=== PATIENT | female | born 1965 | race African-American/Black ===

== ENCOUNTER 2016-09-19 21:19 | Emergency (ER) | payer OTHER ==
[2016-09-19] MEDS ORDERED: Ondansetron HCl/PF 4 MG/2 ML Vial ONE (22:09)
[2016-09-19] MEDS ORDERED: Morphine Sulfate 2 MG/ML SYRINGE ONE (22:09)
[2016-09-19] MEDS ORDERED: Sodium Chloride 0.9% 1,000 ML ONE (22:09)
[2016-09-19 22:42] LABS: Base Excess 3.4 mEq/L (0 (+/- 2.5)); pH (venous) 7.49 (7.34-7.37)
[2016-09-19 22:50] LABS: #Basophils 0.2 thou/uL (0.0-0.2); #Eosinphils 0.4 thou/uL (0.0-0.7); #Lymphocytes 2.9 thou/uL (1.20-3.40); #Monocytes 0.6 thou/uL (0.11-0.59); #Neutrophils 6.5 thou/uL (1.40-6.50); %Basophils 1.8 % (0.0-1.0); %Eosinophils 3.5 % (0.0-10.0); %Lymphocytes 27.3 % (21.0-51.0); %Monocytes 5.4 % (0.0-10.0); Hematocrit 36.5 % (36.0-47.0); Mean Platelet Volume 5.5 fL (7.4-10.4); Microcytosis SLIGHT = 6-15 cells (100X) (0-5/hpf); Ovalocytes SLIGHT = 2-5 cells (100X) (0-1/hpf); Red Blood Cell (RBC) Count 4.73 mill/uL (4.20-5.40); White Blood Cell (WBC) Count 10.5 thou/uL (4.8-10.8)
[2016-09-19 22:54] LABS: Bilirubin Negative (Negative); Blood, Urine Moderate (Negative); Glucose, Urine (Dipstick) 500 mg/dL (Negative); Ketone, Urine Trace mg/dL (Negative); Nitrite Negative (Negative); Protein, Urine (Dipstick) Negative (Neg-Trace)
[2016-09-19 22:59] LABS: ALT (SGPT) 19 U/L (0-55); AST (SGOT) 14 U/L (5-34); Alkaline Phosphatase 143 U/L (40-150); Anion Gap 12 mmol/L (10-20); BUN (Urea Nitrogen) 18 mg/dL (7.0-18.7); Bilirubin, Total 0.2 mg/dL (0.2-1.2); Calc. Creatinine Clearance 0 mL/min (70-130); Calcium 8.6 mg/dL (7.8-10.44); Carbon Dioxide 26 mmol/L (22-29); Chloride 99 mmol/L (98-107); Estimated GFR-MDRD Greater than 90; Globulin 3.9 g/dL (2.4-3.5); Lipase 32 U/L (8-78); Protein, Total 7.2 g/dL (6.0-8.3)
[2016-09-19 23:00] LABS: Bacteria/HPF 2+ HPF (None Seen); RBC/HPF GREATER THAN 50-TNTC HPF (0-3); WBC/HPF 21-50 HPF (0-3)
--- NOTE | 2016-09-19 23:08 | CT ---
CT ABDOMEN AND PELVIS WITHOUT CONTRAST: 09/19/16 Multiple axial tomograms were obtained through the abdomen and pelvis without IV enhancement. HISTORY: Right flank pain and abdominal pain. Comparison made to CT of 05/08/16. The 2 cm nodule in the right lung base noted on prior CT is not imaged on the current study due to l ocation of the scan. The entire liver is also not imaged on this exam. The visualized liver and spleen appear unremarkable. The pancreas and adrenal glands are unremarkabl e. Kidneys show no evidence of hydronephrosis. No evidence of urinary tract calculus. The tiny calculus seen in the inferior pole of the left kidney on the prior study is not definitely seen today. Small bowel loops appear normal. Appendix appears normal. Colon unremarkable. Images of the pelvis show u nremarkable uterus and adnexa. No evidence of adenopathy. Nonspecific periaortic lymph nodes are sub centimeter and stable. IMPRESSION: No acute process identified. POS: [facility]
[2016-09-19] MEDS ORDERED: Sodium Chloride 0.9% 100 ML ONE (23:10)
[2016-09-19] MEDS ORDERED: Insulin Regular 300 UNITS/3 ML VIAL ONE (23:10)
[2016-09-19] MEDS ORDERED: cefTRIAXone\\ROCEPHIN 2 GM VIAL ONE (23:10)
[2016-09-19] MEDS ORDERED: HYDROcodone/Acetaminophen 10/325 mg Tablet ONE (23:26)
== END 2016-09-20 00:14 | disposition home or self-care (01) ==
LOC: NAV ERS 21:19
DX: N39.0 Urinary tract infection, site not specified (principal); E11.65 Type 2 diabetes mellitus with hyperglycemia; I10 Essential (primary) hypertension; F31.9 Bipolar disorder, unspecified; F41.9 Anxiety disorder, unspecified; F17.210 Nicotine dependence, cigarettes, uncomplicated; Z79.4 Long term (current) use of insulin
CPT/HCPCS: 36416; 74176; 80053; 81003; 81015; 82010; 82805; 83690; 85025; 87077; 87086; 87186; 93005; 96361; 96365; 96375; J0696; J1815; J2270; J2405; J7050

== ENCOUNTER 2016-10-28 20:26 | Emergency (ER) | payer OTHER ==
[~2016-10-28 20:26] MED LIST: Iopamidol 370 76% 100 ML VIAL ONE
--- NOTE | 2016-10-28 21:05 | RAD ---
CHEST ONE VIEW: History: Chest pain. Cough. Comparison: 08-12-16 FINDINGS: The cardiac silhouette is magnified by projection. Pulmonary vasculature is unremarkable. Mediastinu m is midline. There is no lobar consolidation or evidence of pneumothorax. athletic monitor leads ove rlie the chest. IMPRESSION: No active cardiopulmonary abnormalities are evident. POS: [facility]
[2016-10-28] MEDS ORDERED: Sodium Chloride 0.9% 1,000 ML ONE (21:11)
[2016-10-28 21:17] LABS: #Basophils 0.2 thou/uL (0.0-0.2); #Eosinphils 0.2 thou/uL (0.0-0.7); #Lymphocytes 2.6 thou/uL (1.20-3.40); #Monocytes 0.7 thou/uL (0.11-0.59); #Neutrophils 7.8 thou/uL (1.40-6.50); %Basophils 1.7 % (0.0-1.0); %Eosinophils 1.6 % (0.0-10.0); %Lymphocytes 22.4 % (21.0-51.0); %Monocytes 6.1 % (0.0-10.0); %Neutrophils 68.2 % (42.0-75.0); Hemoglobin 13.1 g/dL (12.0-16.0); Mean Corpuscular HGB CONC 31.7 g/dL (32.0-36.0); Mean Corpuscular Hemoglobin 25.2 pg (27.0-31.0); Mean Corpuscular Volume 79.5 fl (81.0-99.0); Platelet Count 314 thou/uL (130-400); RBC Distribution Width 14.7 % (11.5-14.5); White Blood Cell (WBC) Count 11.4 thou/uL (4.8-10.8)
[2016-10-28] MEDS ORDERED: Nitroglycerin 0.4 MG TAB (25 Tab Bottle) ONE (21:22)
[2016-10-28 21:29] LABS: ALT (SGPT) 14 U/L (0-55); AST (SGOT) 15 U/L (5-34); Albumin 3.6 g/dL (3.5-5.0); Alkaline Phosphatase 160 U/L (40-150); Anion Gap 15 mmol/L (10-20); BUN (Urea Nitrogen) 12 mg/dL (7.0-18.7); Bilirubin, Total 0.3 mg/dL (0.2-1.2); Calc. Creatinine Clearance 0 mL/min (70-130); Calcium 8.6 mg/dL (7.8-10.44); Carbon Dioxide 24 mmol/L (22-29); Chloride 97 mmol/L (98-107); Estimated GFR-MDRD 61; Glucose 468 mg/dL (70-105); Lipase 29 U/L (8-78); Potassium 4.5 mmol/L (3.5-5.1); Protein, Total 7.6 g/dL (6.0-8.3); Sodium 131 mmol/L (136-145)
[2016-10-28 21:30] LABS: CKMB 3.7 ng/mL (0-6.6); Troponin I Less than 0.010 ng/mL (< 0.028)
[2016-10-28] MEDS ORDERED: Insulin Regular 300 UNITS/3 ML VIAL ONE (21:56)
--- NOTE | 2016-10-28 22:38 | CT ---
CT ARTERIOGRAM CHEST WITH IV CONTRAST AND 3D MIP IMAGING: History: Chest pain. Comparison: 05-10-16 FINDINGS: There is good contrast opacification of the pulmonary arteries and thoracic aorta. Normal branching of the great vessels is apparent. The lobular soft tissue density mass within the posterior aspect o f the left lower lobe is similar in appearance to the prior study. Additional smaller nodules in the right lower lobe are also stable. Mass at the right infrahilar level is unchanged from the previous study. It is 2.4 x 1.5 cm greatest diameters and partially encases the right lower lobe vascular st ructures. Subtle ground glass opacity is present throughout each lung. No pleural fluid is apparent. IMPRESSION: 1. No CT evidence of pulmonary embolis. 2. While the right lower lobe nodules and right infrahilar adenopathy have not changed significantly since the 05-10-16 study, there has been progression since the 11-03-12 exam. Neoplasm is suspected. P mono consider pulmonary medicine evaluation and radionuclide PET scan for better characterization. POS: [facility]
== END 2016-10-28 22:51 | disposition left against medical advice (07) ==
LOC: NAV ERS 20:26
DX: R09.1 Pleurisy (principal); R04.2 Hemoptysis; E11.65 Type 2 diabetes mellitus with hyperglycemia; I10 Essential (primary) hypertension; J45.909 Unspecified asthma, uncomplicated; F31.9 Bipolar disorder, unspecified; F41.9 Anxiety disorder, unspecified; F17.210 Nicotine dependence, cigarettes, uncomplicated; Z79.899 Other long term (current) drug therapy
CPT/HCPCS: 36416; 71010; 71275; 80053; 82553; 83690; 83880; 84484; 85025; 85379; 93005; 94760; 96361; 96374; J1815; J7050

== ENCOUNTER 2017-01-04 09:11 | Emergency (ER) | payer OTHER ==
[2017-01-04] MEDS ORDERED: Acetaminophen/Codeine 30-300mg Tablet ONE (09:32)
== END 2017-01-04 10:27 | disposition home or self-care (01) ==
LOC: NAV ERS 09:11
DX: J02.9 Acute pharyngitis, unspecified (principal); M54.5 Low back pain; E11.9 Type 2 diabetes mellitus without complications; I10 Essential (primary) hypertension; J45.909 Unspecified asthma, uncomplicated; F31.9 Bipolar disorder, unspecified; F41.9 Anxiety disorder, unspecified; Z79.4 Long term (current) use of insulin; Z79.899 Other long term (current) drug therapy
CPT/HCPCS: 87081; 87430; 99283

== ENCOUNTER 2017-01-06 08:05 | Emergency (ER) | payer OTHER, SELFPAY ==
[2017-01-06 08:50] LABS: #Basophils 0.1 thou/uL (0.0-0.2); #Eosinphils 0.2 thou/uL (0.0-0.7); #Lymphocytes 1.9 thou/uL (1.20-3.40); #Monocytes 0.6 thou/uL (0.11-0.59); #Neutrophils 7.6 thou/uL (1.40-6.50); %Basophils 1.3 % (0.0-1.0); %Eosinophils 2.3 % (0.0-10.0); %Lymphocytes 18.4 % (21.0-51.0); %Monocytes 5.4 % (0.0-10.0); %Neutrophils 72.6 % (42.0-75.0); Hemoglobin 11.5 g/dL (12.0-16.0); Mean Corpuscular HGB CONC 30.3 g/dL (32.0-36.0); Mean Corpuscular Hemoglobin 23.3 pg (27.0-31.0); Mean Corpuscular Volume 76.8 fl (81.0-99.0); Mean Platelet Volume 5.6 fL (7.4-10.4); Platelet Count 275 thou/uL (130-400); RBC Distribution Width 13.8 % (11.5-14.5); Red Blood Cell (RBC) Count 4.95 mill/uL (4.20-5.40); White Blood Cell (WBC) Count 10.5 thou/uL (4.8-10.8)
[2017-01-06] MEDS ORDERED: Sodium Chloride 0.9% 1,000 ML ONE ×2 (09:02→10:13)
[2017-01-06] MEDS ORDERED: Insulin Regular 300 UNITS/3 ML VIAL ONE ×2 (09:03→11:20)
[2017-01-06 09:05] LABS: CKMB 2.4 ng/mL (0-6.6); MDiff Complete? YES; Microcytosis SLIGHT = 6-15 cells (100X) (0-5/hpf); PLT Morphology Comment Appears Adequate; Troponin I Less than 0.010 ng/mL (< 0.028)
[2017-01-06 09:11] LABS: ALT (SGPT) 16 U/L (8-55); AST (SGOT) 15 U/L (5-34); Albumin 3.4 g/dL (3.5-5.0); Alkaline Phosphatase 175 U/L (40-150); Anion Gap 19 mmol/L (10-20); BUN (Urea Nitrogen) 11 mg/dL (7.0-18.7); Bilirubin, Total 0.2 mg/dL (0.2-1.2); CK (CPK) 72 U/L (29-168); Calc. Creatinine Clearance 0 mL/min (70-130); Calcium 8.3 mg/dL (7.8-10.44); Carbon Dioxide 20 mmol/L (22-29); Chloride 101 mmol/L (98-107); Estimated GFR-MDRD 88; Globulin 4.3 g/dL (2.4-3.5); Glucose 404 mg/dL (70-105); Potassium 4.5 mmol/L (3.5-5.1); Protein, Total 7.7 g/dL (6.0-8.3); Sodium 135 mmol/L (136-145)
[2017-01-06 09:14] LABS: Bilirubin Negative (Negative); Blood, Urine Trace (Negative); Clarity Clear (Clear); Glucose, Urine (Dipstick) 500 mg/dL (Negative); Leukocyte Negative (Negative); Nitrite Negative (Negative); Protein, Urine (Dipstick) Negative (Neg-Trace)
[2017-01-06 09:28] LABS: Bacteria/HPF Rare-Few HPF (None Seen); RBC/HPF 0-3 HPF (0-3); WBC/HPF None Seen HPF (0-3)
[2017-01-06] MEDS ORDERED: Acetaminophen 500 MG TAB ONE (09:56)
== END 2017-01-06 12:19 | disposition home or self-care (01) ==
LOC: NAV ERS 08:05
DX: E11.65 Type 2 diabetes mellitus with hyperglycemia (principal); I10 Essential (primary) hypertension; D86.9 Sarcoidosis, unspecified; E66.01 Morbid (severe) obesity due to excess calories; J45.909 Unspecified asthma, uncomplicated; F41.9 Anxiety disorder, unspecified; F31.9 Bipolar disorder, unspecified
CPT/HCPCS: 36416; 80053; 81003; 81015; 82010; 82553; 84484; 85025; 93005; 96361; 96374; 96376; J1815; J7050

== ENCOUNTER 2017-03-07 18:12 | Emergency (ER) | payer OTHER ==
[2017-03-07] MEDS ORDERED: Sodium Chloride 0.9% 1,000 ML ONE (18:59)
[2017-03-07] MEDS ORDERED: Acetaminophen 500 MG TAB ONE ×2 (19:16→19:17)
[2017-03-07 19:19] LABS: #Basophils 0.2 thou/uL (0.0-0.2); #Eosinphils 0.3 thou/uL (0.0-0.7); #Lymphocytes 2.1 thou/uL (1.20-3.40); #Monocytes 0.5 thou/uL (0.11-0.59); #Neutrophils 6.8 thou/uL (1.40-6.50); %Basophils 1.7 % (0.0-1.0); %Eosinophils 2.7 % (0.0-10.0); %Lymphocytes 21.1 % (21.0-51.0); %Monocytes 4.7 % (0.0-10.0); %Neutrophils 69.8 % (42.0-75.0); Hemoglobin 12.5 g/dL (12.0-16.0); Mean Corpuscular HGB CONC 29.4 g/dL (32.0-36.0); Mean Corpuscular Hemoglobin 22.8 pg (27.0-31.0); Mean Corpuscular Volume 77.5 fl (81.0-99.0); Mean Platelet Volume 5.4 fL (7.4-10.4); Platelet Count 307 thou/uL (130-400); RBC Distribution Width 14.7 % (11.5-14.5); White Blood Cell (WBC) Count 9.8 thou/uL (4.8-10.8)
[2017-03-07 19:25] LABS: ALT (SGPT) 19 U/L (8-55); AST (SGOT) 25 U/L (5-34); Albumin 3.4 g/dL (3.5-5.0); Alkaline Phosphatase 161 U/L (40-150); Anion Gap 15 mmol/L (10-20); BUN (Urea Nitrogen) 9 mg/dL (7.0-18.7); Bilirubin, Total 0.3 mg/dL (0.2-1.2); Calc. Creatinine Clearance 0 mL/min (70-130); Calcium 8.3 mg/dL (7.8-10.44); Carbon Dioxide 25 mmol/L (22-29); Chloride 100 mmol/L (98-107); Estimated GFR-MDRD Greater than 90; Globulin 4.1 g/dL (2.4-3.5); Glucose 299 mg/dL (70-105); Potassium 4.7 mmol/L (3.5-5.1); Protein, Total 7.5 g/dL (6.0-8.3); Sodium 135 mmol/L (136-145)
[2017-03-07 19:42] LABS: Pregnancy Test - Urine (BHCG) Negative (NEGATIVE); Specific Gravity 1.018 (1.002-1.036)
[2017-03-07 19:43] LABS: Pregu Control Background? CLEAR/WHITE (CLR/WHITE); Pregu Control Bar Appear? YES (CONTROL BAR)
== END 2017-03-07 20:18 | disposition left against medical advice (07) ==
LOC: NAV ERS 18:12
DX: N93.9 Abnormal uterine and vaginal bleeding, unspecified (principal); E11.9 Type 2 diabetes mellitus without complications; I10 Essential (primary) hypertension; J45.909 Unspecified asthma, uncomplicated; F41.9 Anxiety disorder, unspecified
CPT/HCPCS: 80053; 81025; 85025; 96360; J7050

== ENCOUNTER 2017-10-31 08:52 | Emergency (ER) | payer OTHER, SELFPAY ==
[2017-10-31] MEDS ORDERED: Dexamethasone 20 MG/5 ML VIAL ONE (09:51)
[2017-10-31] MEDS ORDERED: Ketorolac Tromethamine 60 MG/2 ML VIAL ONE (09:51)
--- NOTE | 2017-10-31 10:40 | RAD ---
LUMBAR SPINE 3 VIEWS: Date: 10/31/17 HISTORY: Low back pain. Chronic pain. COMPARISON: Lumbar spine radiograph from 2015. FINDINGS: Mild degenerative disc space narrowing at T12-L1 and L1-L2 with anterior osteophyte formation, simila r. There is no acute fracture or malalignment of the lumbar spine. Mild vascular calcifications. Righ t upper quadrant surgical clips. There is radiopaque debris projecting over the expected location of the duodenum. IMPRESSION: No acute fracture or malalignment of the lumbar spine. Mild to moderate degenerative changes. No list hesis. POS: [facility]
== END 2017-10-31 10:06 | disposition home or self-care (01) ==
LOC: NAV ERS 08:52
DX: M54.5 Low back pain (principal); E11.9 Type 2 diabetes mellitus without complications; I10 Essential (primary) hypertension; J45.909 Unspecified asthma, uncomplicated; F41.9 Anxiety disorder, unspecified; F31.9 Bipolar disorder, unspecified; Z79.899 Other long term (current) drug therapy; Z79.4 Long term (current) use of insulin
CPT/HCPCS: 72100; 96372; J1100; J1885

== ENCOUNTER 2018-01-29 18:59 | Emergency (ER) | payer SELFPAY ==
[2018-01-29 20:11] LABS: Hemoglobin 11.5 g/dL (12.0-16.0); Mean Corpuscular HGB CONC 30.1 g/dL (32.0-36.0); Mean Corpuscular Hemoglobin 23.1 pg (27.0-31.0); Mean Corpuscular Volume 76.7 fL (78.0-98.0); Mean Platelet Volume 5.3 fL (7.4-10.4); Platelet Count 322 thou/uL (130-400); RBC Distribution Width 13.8 % (11.5-14.5); Red Blood Cell (RBC) Count 4.98 mill/uL (4.20-5.40); White Blood Cell (WBC) Count 8.7 thou/uL (4.8-10.8)
[2018-01-29 20:25] LABS: ALT (SGPT) 13 U/L (8-55); AST (SGOT) 16 U/L (5-34); Albumin 3.3 g/dL (3.5-5.0); Alkaline Phosphatase 156 U/L (40-150); Anion Gap 14 mmol/L (10-20); BUN (Urea Nitrogen) 8 mg/dL (7.0-18.7); Bilirubin, Total 0.2 mg/dL (0.2-1.2); Calc. Creatinine Clearance 0 mL/min (70-130); Calcium 8.7 mg/dL (7.8-10.44); Carbon Dioxide 24 mmol/L (22-29); Chloride 100 mmol/L (98-107); Estimated GFR-MDRD Greater than 90; Globulin 3.5 g/dL (2.4-3.5); Glucose 367 mg/dL (70-105); Potassium 3.8 mmol/L (3.5-5.1); Protein, Total 6.8 g/dL (6.0-8.3); Sodium 134 mmol/L (136-145)
[2018-01-29 20:26] LABS: Troponin I Less than 0.010 ng/mL (< 0.028)
[2018-01-29] MEDS ORDERED: Sodium Chloride 0.9% 1,000 ML ONE (20:42)
[2018-01-29 20:46] LABS: Eosinophils 3 % (0-10); Hypochromia SLIGHT = 6-15 cells (100X) (0-5/hpf); Lymphocytes 29 % (21-51); MDiff Complete? YES; Monocytes 3 % (0-10); Neutrophil 65 % (42-75); PLT Morphology Comment Appears Adequate
--- NOTE | 2018-01-29 20:58 | RAD ---
RADIOGRAPH CHEST 1 VIEW: 01/2718 HISTORY: 52-year-old female with chest pain and cough. FINDINGS: There are no air space densities, pulmonary edema, pneumothorax, or cardiomegaly. The lateral costop hrenic angles are sharp. IMPRESSION: No acute cardiopulmonary findings. bhargavi [] POS: [facility]
== END 2018-01-29 21:45 | disposition left against medical advice (07) ==
LOC: NAV ERS 18:59
DX: R07.9 Chest pain, unspecified (principal); R00.0 Tachycardia, unspecified; E11.9 Type 2 diabetes mellitus without complications; E66.9 Obesity, unspecified; I10 Essential (primary) hypertension; J45.909 Unspecified asthma, uncomplicated; F41.9 Anxiety disorder, unspecified; F31.9 Bipolar disorder, unspecified; Z79.899 Other long term (current) drug therapy; Z79.84 Long term (current) use of oral hypoglycemic drugs
CPT/HCPCS: 36415; 71045; 80053; 83880; 84484; 85025; 85379; 93005; 96360; J7050

== ENCOUNTER 2018-05-09 17:19 | Emergency (ER) | payer SELFPAY ==
[2018-05-09] MEDS ORDERED: Sodium Chloride 0.9% 1,000 ML ONE ×3 (18:07→21:39)
[2018-05-09] MEDS ORDERED: Acetaminophen 500 MG TAB ONE (18:10)
[2018-05-09 18:45] LABS: Hemoglobin 11.9 g/dL (12.0-16.0); Mean Corpuscular HGB CONC 30.2 g/dL (32.0-36.0); Mean Corpuscular Hemoglobin 23.5 pg (27.0-31.0); Mean Platelet Volume 5.5 fL (7.4-10.4); Platelet Count 313 thou/uL (130-400); RBC Distribution Width 15.3 % (11.5-14.5); Red Blood Cell (RBC) Count 5.05 mill/uL (4.20-5.40)
[2018-05-09] MEDS ORDERED: Sodium Chloride 0.9% 250 ML 250 ML ONE (18:56)
[2018-05-09] MEDS ORDERED: Sodium Chloride 0.9% 100 ML ONE (18:56)
[2018-05-09] MEDS ORDERED: Azithromycin 500 MG VIAL ONE (18:56)
[2018-05-09] MEDS ORDERED: cefTRIAXone\\ROCEPHIN 2 GM VIAL ONE (18:56)
[2018-05-09 19:00] LABS: ALT (SGPT) 22 U/L (8-55); AST (SGOT) 29 U/L (5-34); Albumin 3.7 g/dL (3.5-5.0); Alkaline Phosphatase 211 U/L (40-150); Anion Gap 17 mmol/L (10-20); BUN (Urea Nitrogen) 11 mg/dL (9.8-20.1); Bilirubin, Total 0.5 mg/dL (0.2-1.2); Calc. Creatinine Clearance 0 mL/min (70-130); Carbon Dioxide 24 mmol/L (22-29); Chloride 97 mmol/L (98-107); Estimated GFR-MDRD 89; Globulin 4.5 g/dL (2.4-3.5); Glucose 227 mg/dL (70-105); Potassium 4.3 mmol/L (3.5-5.1); Protein, Total 8.2 g/dL (6.0-8.3); Sodium 134 mmol/L (136-145)
[2018-05-09 19:13] LABS: Bilirubin Negative (Negative); Blood, Urine Negative (Negative); Clarity Clear (Clear); Glucose, Urine (Dipstick) Negative (Negative); Leukocyte Negative (Negative); Nitrite Negative (Negative); Protein, Urine (Dipstick) Negative (Neg-Trace)
[2018-05-09 19:29] LABS: Eosinophils 2 % (0-10); Lymphocytes 14 % (21-51); MDiff Complete? YES; Monocytes 6 % (0-10); Neutrophil 78 % (42-75); PLT Morphology Comment Appears Adequate; RBC Morphology Normal
[2018-05-09] MEDS ORDERED: Ondansetron HCl/PF 4 MG/2 ML Vial ONE (19:42)
--- NOTE | 2018-05-09 20:04 | RAD ---
FRONTAL RADIOGRAPH CHEST 05/09/18 COMPARISON: 01/29/18. HISTORY: Fever, sore throat, nausea and vomiting. FINDINGS: The lungs are clear. Heart and mediastinal contours appear unremarkable. Linear metallic density ove rlies the cardiac silhouette, a stable finding. IMPRESSION: Stable appearance of the chest. POS: [facility]
== END 2018-05-09 22:20 | disposition short-term general hospital (02) ==
LOC: NAV ERS 17:19
DX: A41.9 Sepsis, unspecified organism (principal); E11.9 Type 2 diabetes mellitus without complications; E66.01 Morbid (severe) obesity due to excess calories; I10 Essential (primary) hypertension; J45.909 Unspecified asthma, uncomplicated; F41.9 Anxiety disorder, unspecified; F32.9 Major depressive disorder, single episode, unspecified; F31.9 Bipolar disorder, unspecified; Z79.899 Other long term (current) drug therapy; Z79.4 Long term (current) use of insulin
CPT/HCPCS: 36416; 71045; 80053; 81003; 82010; 83605; 85025; 87040; 87081; 87086; 87430; 87804; 93005; 96361; 96365; 96367; 96375; J0456; J0696; J2405; J7050

== ENCOUNTER 2018-06-28 09:08 | Emergency (ER) | payer SELFPAY ==
[2018-06-28 10:11] LABS: Bilirubin Negative (Negative); Blood, Urine Moderate (Negative); Glucose, Urine (Dipstick) 500 mg/dL (Negative); Leukocyte Large (Negative); Nitrite Negative (Negative); Protein, Urine (Dipstick) 100 mg/dL (Neg-Trace); Specific Gravity, Urine 1.015 (1.005-1.030); Urobilinogen 0.2 mg/dL (0.2-1.0)
[2018-06-28 10:24] LABS: Clarity SL HAZY (Clear)
[2018-06-28 10:31] LABS: Bacteria/HPF 2+ HPF (None Seen); Transitional Epithelial 0-3 HPF (0-3)
[2018-06-28 10:33] LABS: #Basophils 0.1 thou/uL (0.0-0.2); #Lymphocytes 1.4 thou/uL (1.20-3.40); #Monocytes 0.8 thou/uL (0.11-0.59); #Neutrophils 7.4 thou/uL (1.40-6.50); %Basophils 0.6 % (0.0-1.0); %Eosinophils 0.1 % (0.0-10.0); %Lymphocytes 14.7 % (21.0-51.0); %Monocytes 7.8 % (0.0-10.0); %Neutrophils 76.9 % (42.0-75.0); Hemoglobin 11.3 g/dL (12.0-16.0); Mean Corpuscular HGB CONC 29.8 g/dL (32.0-36.0); Mean Corpuscular Hemoglobin 24.1 pg (27.0-31.0); Mean Corpuscular Volume 80.9 fL (78.0-98.0); Mean Platelet Volume 4.9 fL (7.4-10.4); Platelet Count 181 thou/uL (130-400); RBC Distribution Width 16.1 % (11.5-14.5); Red Blood Cell (RBC) Count 4.68 mill/uL (4.20-5.40); White Blood Cell (WBC) Count 9.7 thou/uL (4.8-10.8)
[2018-06-28] MEDS ORDERED: Sodium Chloride 0.9% 1,000 ML ONE (10:43)
[2018-06-28] MEDS ORDERED: Acetaminophen 500 MG TAB ONE (10:43)
[2018-06-28 10:53] LABS: ALT (SGPT) 21 U/L (8-55); AST (SGOT) 22 U/L (5-34); Albumin 3.5 g/dL (3.5-5.0); Alkaline Phosphatase 198 U/L (40-150); Anion Gap 16 mmol/L (10-20); BUN (Urea Nitrogen) 7 mg/dL (9.8-20.1); Bilirubin, Total 0.5 mg/dL (0.2-1.2); Calc. Creatinine Clearance 0 mL/min (70-130); Calcium 9.1 mg/dL (7.8-10.44); Carbon Dioxide 26 mmol/L (22-29); Chloride 94 mmol/L (98-107); Estimated GFR-MDRD 82; Globulin 4.4 g/dL (2.4-3.5); Glucose 345 mg/dL (70-105); Lipase 8 U/L (8-78); Potassium 3.9 mmol/L (3.5-5.1); Protein, Total 7.9 g/dL (6.0-8.3); Sodium 132 mmol/L (136-145)
[2018-06-28] MEDS ORDERED: Bisacodyl 10 MG SUPP ONE (10:53)
[2018-06-28] MEDS ORDERED: levETIRAcetam 500 MG TAB ONE (11:20)
[2018-06-28] MEDS ORDERED: Cephalexin 250 MG CAP ONE (11:21)
[2018-06-28] MEDS ORDERED: cloNIDine 0.2 MG TAB ONE (11:21)
[2018-06-28] MEDS ORDERED: Insulin Regular 300 UNITS/3 ML VIAL ONE (11:29)
--- NOTE | 2018-06-28 12:16 | RAD ---
ABDOMEN 2 VIEWS: HISTORY: Abdominal pain. COMPARISON: Radiograph from 2007. FINDINGS: There are right upper quadrant surgical clips. There appears to be a loop recording device projectin g over the chest. There are no dilated air-filled loops of large or small bowel. On the upright exam, there is no free air in the hemidiaphragms. Calcifications noted over the right lower quadrant of the abdomen may be a calcified granuloma. No a bnormal calcifications projecting over the renal shadows. Advanced degenerative disease of the pubic symphysis. IMPRESSION: No acute abnormality within the abdomen. POS: [facility]
== END 2018-06-28 12:09 | disposition home or self-care (01) ==
LOC: NAV ERS 09:08
DX: K59.00 Constipation, unspecified (principal); N30.01 Acute cystitis with hematuria; I10 Essential (primary) hypertension; E11.65 Type 2 diabetes mellitus with hyperglycemia; E66.01 Morbid (severe) obesity due to excess calories; J42 Unspecified chronic bronchitis; F41.9 Anxiety disorder, unspecified; F31.9 Bipolar disorder, unspecified; Z79.4 Long term (current) use of insulin; Z79.899 Other long term (current) drug therapy
CPT/HCPCS: 74019; 80053; 81003; 81015; 82274; 83690; 85025; 87077; 87086; 87186; 96360; J1815; J7050

== ENCOUNTER 2018-07-03 10:28 | Emergency (ER) | payer SELFPAY ==
--- NOTE | 2018-07-03 12:01 | RAD ---
LEFT ANKLE 3 VIEWS: HISTORY: A 53-year-old female with a history of left ankle swelling following an injury. FINDINGS: Minimal anterior and lateral soft tissue swelling. No fracture or dislocation. There are some metal density presumed postsurgical changes overlying the region of the 1st metatarsal and 1st and 2nd met atarsal interspace. Calcaneal plantar and Achilles enthesophytes. Vascular calcifications. IMPRESSION: Lateral soft tissue swelling. Mild degenerative changes of the tibiotalar joint. No other acute pro cess. POS: [facility]
--- NOTE | 2018-07-03 12:02 | RAD ---
LEFT KNEE 4 VIEWS: HISTORY: A 53-year-old female with a history of injury and left knee pain. FINDINGS: Tricompartmental arthrosis and degenerative changes with hypertrophic osteophytosis. Evidence for so me suprapatellar joint fluid. No acute fracture or dislocation. IMPRESSION: Degenerative changes without acute fracture or dislocation. POS: [facility]
--- NOTE | 2018-07-03 12:07 | RAD ---
TWO VIEWS LEFT FEMUR: Comparison: None. History: Left femur pain. Patient slipped and fell in the kitchen. FINDINGS: Two views of the left femur shows no evidence of acute fracture or dislocation. No degenerative willoughby es are seen in the hip. There are moderate degenerative changes in the left knee. Vascular calcificat ions are seen. IMPRESSION: 1. No evidence of acute osseous abnormality. 2. Moderate left knee osteoarthritis. POS: [facility]
== END 2018-07-03 12:12 | disposition home or self-care (01) ==
LOC: NAV ERS 10:28
DX: S83.422A Sprain of lateral collateral ligament of left knee, initial encounter (principal); S93.402A Sprain of unspecified ligament of left ankle, initial encounter; M17.12 Unilateral primary osteoarthritis, left knee; E11.9 Type 2 diabetes mellitus without complications; I10 Essential (primary) hypertension; Z79.4 Long term (current) use of insulin; W19.XXXA Unspecified fall, initial encounter; Z79.899 Other long term (current) drug therapy

== ENCOUNTER 2018-08-11 17:57 | Emergency (ER) | payer SELFPAY | END 2018-08-11 19:05 | disposition home or self-care (01) | LOC: NAV ERS 17:57 | DX: H10.9 Unspecified conjunctivitis (principal); E11.9 Type 2 diabetes mellitus without complications; E66.01 Morbid (severe) obesity due to excess calories; J45.909 Unspecified asthma, uncomplicated; F41.9 Anxiety disorder, unspecified; F31.9 Bipolar disorder, unspecified; Z79.891 Long term (current) use of opiate analgesic; Z79.899 Other long term (current) drug therapy; Z79.4 Long term (current) use of insulin; Z79.51 Long term (current) use of inhaled steroids | CPT/HCPCS: 99282 ==

== ENCOUNTER 2018-10-16 10:40 | Emergency (ER) | payer SELFPAY ==
[2018-10-16 11:36] LABS: Bilirubin Negative (Negative); Blood, Urine Negative (Negative); Clarity Clear (Clear); Glucose, Urine (Dipstick) >=1000 mg/dL (Negative); Leukocyte Negative (Negative); Nitrite Negative (Negative); Protein, Urine (Dipstick) Negative (Neg-Trace); Urobilinogen 0.2 mg/dL (0.2-1.0); pH, Urine 5.5 (5.0-9.0)
--- NOTE | 2018-10-16 11:44 | RAD ---
RIGHT KNEE 4 VIEWS: Date: 10/16/18 HISTORY: Knee pain. COMPARISON: 08/12/16 study. FINDINGS: There are marked arthritic changes of the knee. Marked medial compartment narrowing and prominent spu r formation of the lateral compartment and also degenerative changes of the patellofemoral joint spac e. There is moderate joint effusion also seen. No acute injury demonstrated. If internal derangement is clinically suspected, MRI may be helpful. IMPRESSION: 1. Moderate severe arthritic changes of the knee with associated joint effusion. 2. Atherosclerosis. POS: [facility]
[2018-10-16 11:59] LABS: Pregnancy Test - Urine (BHCG) Negative (Negative); Pregu Control Background? CLEAR/WHITE (CLR/WHITE); Pregu Control Bar Appear? YES (CONTROL BAR)
[2018-10-16 12:03] LABS: Anion Gap 15 mmol/L (10-20); BUN (Urea Nitrogen) 14 mg/dL (9.8-20.1); Calc. Creatinine Clearance 0 mL/min (70-130); Calcium 9.2 mg/dL (7.8-10.44); Carbon Dioxide 24 mmol/L (22-29); Chloride 100 mmol/L (98-107); Estimated GFR-MDRD 82; Glucose 369 mg/dL (70-105); Mean Corpuscular HGB CONC 30.6 g/dL (32.0-36.0); Mean Corpuscular Hemoglobin 25.4 pg (27.0-31.0); Mean Corpuscular Volume 82.9 fL (78.0-98.0); Mean Platelet Volume 5.1 fL (7.4-10.4); Platelet Count 309 thou/uL (130-400); Potassium 4.7 mmol/L (3.5-5.1); RBC Distribution Width 13.7 % (11.5-14.5); Red Blood Cell (RBC) Count 4.74 mill/uL (4.20-5.40); Sodium 134 mmol/L (136-145); White Blood Cell (WBC) Count 8.9 thou/uL (4.8-10.8)
[2018-10-16 12:08] LABS: #Basophils 0.1 thou/uL (0.0-0.2); #Eosinphils 0.1 thou/uL (0.0-0.7); #Lymphocytes 2.3 thou/uL (1.20-3.40); #Monocytes 0.4 thou/uL (0.11-0.59); %Basophils 0.8 % (0.0-1.0); %Eosinophils 1.4 % (0.0-10.0); %Lymphocytes 25.6 % (21.0-51.0); %Monocytes 4.5 % (0.0-10.0); %Neutrophils 67.7 % (42.0-75.0)
== END 2018-10-16 12:31 | disposition home or self-care (01) ==
LOC: NAV ERS 10:40
DX: S83.91XA Sprain of unspecified site of right knee, initial encounter (principal); K59.00 Constipation, unspecified; E11.9 Type 2 diabetes mellitus without complications; I10 Essential (primary) hypertension; Z79.4 Long term (current) use of insulin; Z79.899 Other long term (current) drug therapy; X50.1XXA Overexertion from prolonged static or awkward postures, initial encounter
CPT/HCPCS: 80048; 81003; 81025; 85025

== ENCOUNTER 2019-03-31 16:03 | Emergency (ER) | payer SELFPAY ==
[2019-03-31] MEDS ORDERED: Morphine 4 MG/ML VIAL ONE (16:53)
[2019-03-31] MEDS ORDERED: Ondansetron PF 4 MG/2 ML Vial ONE ×2 (16:54)
[2019-03-31 17:01] LABS: Hemoglobin 12.7 g/dL (12.0-16.0); Mean Corpuscular Hemoglobin 24.8 pg (27.0-31.0); Mean Corpuscular Volume 82.5 fL (78.0-98.0); Mean Platelet Volume 5.6 fL (7.4-10.4); Platelet Count 316 thou/uL (130-400); RBC Distribution Width 14.7 % (11.5-14.5); Red Blood Cell (RBC) Count 5.12 mill/uL (4.20-5.40); White Blood Cell (WBC) Count 10.5 thou/uL (4.8-10.8)
[2019-03-31] MEDS ORDERED: Sodium Chloride 0.9% 1,000 ML ONE (17:10)
[2019-03-31 17:11] LABS: Eosinophils 1 % (0-10); Lymphocytes 34 % (21-51); MDiff Complete? YES; Monocytes 4 % (0-10); Neutrophil 61 % (42-75); RBC Morphology Normal
[2019-03-31 17:13] LABS: ALT (SGPT) 14 U/L (8-55); AST (SGOT) 16 U/L (5-34); Albumin 3.7 g/dL (3.5-5.0); Alkaline Phosphatase 181 U/L (40-150); Anion Gap 17 mmol/L (10-20); BUN (Urea Nitrogen) 13 mg/dL (9.8-20.1); Bilirubin, Total 0.2 mg/dL (0.2-1.2); Calc. Creatinine Clearance 0 mL/min (70-130); Calcium 9.4 mg/dL (7.8-10.44); Carbon Dioxide 27 mmol/L (22-29); Chloride 95 mmol/L (98-107); Estimated GFR-MDRD 69; Globulin 4.2 g/dL (2.4-3.5); Glucose 383 mg/dL (70-105); Potassium 4.6 mmol/L (3.5-5.1); Protein, Total 7.9 g/dL (6.0-8.3); Sodium 134 mmol/L (136-145)
--- NOTE | 2019-03-31 17:32 | CT ---
CT Brain WO Con History: Trauma. Fall. Comparison: CT brain November 2017 Findings: No acute hemorrhage or infarct. No midline shift or mass effect. Ventricular size and extra -axial CSF spaces are normal. Calvarium is intact. Paranasal sinuses and mastoids are clear. Globes are intact. Impression: No acute intracranial abnormality.
--- NOTE | 2019-03-31 17:44 | CT ---
CT Cervical Spine WO Con History: Injury. Fall from standing. Comparison: CT cervical spine 2014 Findings: The odontoid process is intact. Occipital condyles are intact. Skull base is intact. No acute traumatic facet joint widening. Evaluation of the lower cervical spine is limited due to renay ton start patient from habitus. Visualized posterior ribs are intact. No apical pneumothorax. No cervical adenopathy. Impression: No acute fracture or malalignment of the cervical spine.
--- NOTE | 2019-03-31 18:03 | RAD ---
XR Knee Rt 4 View STANDARD History: Pain Comparison: Radiograph October 16, 2018 Findings: Moderate medial compartment joint space narrowing. Large joint effusion. Pretibial and prep atellar soft tissue edema. No acute fracture or malalignment. Moderate tricompartmental osteophyte formation. Articular surface remodeling along the lateral femoral condyle. Impression: Advanced osteoarthrosis with moderate joint effusion. No acute displaced fracture.
--- NOTE | 2019-03-31 18:25 | CT ---
CT Chest with contrast CT abdomen with contrast CT pelvis with contrast Limited CT thoracic spine with contrast Limited CT lumbar spine with contrast History: Trauma. Fall from standing. Comparison: CT chest abdomen pelvis 2008 Findings: There is a mass at the right lower lobe measuring up to 1.9 cm similar to the [address] exam. Abnormal right infrahilar lymph nodes are also similar. Pulmonary trunk size is enlarged measuring 3.2 cm. No pericardial effusion. Small right cardiophrenic lymph node measures 5 mm, similar to the most recent comparison exam although much smaller than the 2009 exam. Lungs are clear. No pneumothorax or effusion. No contusion. No acute thoracic spine compression fracture. Sclerosis of the lower thoracic vertebra, similar to pr ior exam, likely degenerative in nature. No acute displaced rib fracture. Clavicles are intact. The sternum and manubrium are intact. No acute aortic injury. Prior cholecystectomy. No free fluid within the pelvis. No dilated loops of large or small bowel. No mesenteric hematoma. No lumbar spine compression fracture. Advanced facet arthropathy L4/L5 and L5/S1. No acute pelvic fracture. Abnormal masslike appearance of density in the left breast incompletely evaluated. Impression: 1. No acute traumatic abnormality within the chest, abdomen, or pelvis. 2. Abnormal masslike density within the left breast. Recommend diagnostic mammogram nonemergently. 3. Likely post treatment changes within the right lower lobe lung nodule as well as mediastinal lymph nodes which are similar to the comparison examination from 2017 although much improved from earlier exams.
== END 2019-03-31 19:45 | disposition home or self-care (01) ==
LOC: NAV ERS 16:03
DX: S83.91XA Sprain of unspecified site of right knee, initial encounter (principal); S20.211A Contusion of right front wall of thorax, initial encounter; S70.01XA Contusion of right hip, initial encounter; R55 Syncope and collapse; R00.0 Tachycardia, unspecified; E11.9 Type 2 diabetes mellitus without complications; E66.01 Morbid (severe) obesity due to excess calories; D86.9 Sarcoidosis, unspecified; F31.9 Bipolar disorder, unspecified; F41.9 Anxiety disorder, unspecified; I10 Essential (primary) hypertension; J45.909 Unspecified asthma, uncomplicated; J42 Unspecified chronic bronchitis; Z79.4 Long term (current) use of insulin; Z79.891 Long term (current) use of opiate analgesic; Z79.899 Other long term (current) drug therapy; W01.0XXA Fall on same level from slipping, tripping and stumbling without subsequent striking against object, initial encounter
CPT/HCPCS: 70450; 71260; 72125; 74177; 80053; 84484; 85025; 93005; 94760; 96361; 96374; 96375; J2270; J2405; J7050; Q9967

== ENCOUNTER 2019-12-27 09:23 | Emergency (ER) | payer MEDICAID, SELFPAY ==
[2019-12-27] MEDS ORDERED: HYDROcodone/Acetaminophen 10/325 mg Tablet ONE (10:07)
--- NOTE | 2019-12-27 10:37 | RAD ---
Right RIBS 3 views Chest one view HISTORY: Fall. Chest pain. FINDINGS: No displaced rib fracture or pneumothorax evident. Cardiac silhouette and pulmonary vasculature are unremarkable. No lobar consolidation. Cardiac monito ring device projects over the mid chest on the frontal view. IMPRESSION : No abnormalities are demonstrated.
--- NOTE | 2019-12-27 10:39 | CT ---
CT head noncontrast HISTORY: Injury. COMPARISON: 03/31/2019. FINDINGS: There is no evidence of acute intracranial hemorrhage or infarct. The ventricles appear nor mal in size, shape and position. There is no mass effect or shift of midline structures. Visualized paranasal sinuses remain well aerated. IMPRESSION : No abnormalities are demonstrated.
--- NOTE | 2019-12-27 10:45 | CT ---
CT lumbar spine noncontrast HISTORY: Fall. Injury. COMPARISON: 04/04/2019. FINDINGS: Vertebral body heights and alignment are maintained. No acute fracture or dislocation are e vident. There is osteophytosis throughout the vertebral bodies and facets. Gas in the facets at the lumbosacral junction. No traumatic disc herniation is apparent. Superiormost images show subtle oval lucency at the right posterior aspect of the T12 vertebral body that is stable compared to the prior study and has a benign appearance on the reformatted images. IMPRESSION : Osseous degenerative changes. No acute osseous abnormalities are demonstrated.
--- NOTE | 2019-12-27 10:46 | RAD ---
Right knee 4 views HISTORY: Injury. FINDINGS: Mild joint space narrowing medial compartment. Moderate tricompartmental osteophytosis. No acute fracture, dislocation, or fluid distention of the suprapatellar bursa. Prominent calcification over the arterial structures. IMPRESSION : Mild to moderate osteoarthritis right knee. No acute osseous abnormalities are demonstrated. Atherosclerosis.
== END 2019-12-27 11:48 | disposition home or self-care (01) ==
LOC: NAV ERS 09:23
DX: S20.211A Contusion of right front wall of thorax, initial encounter (principal); M54.5 Low back pain; G89.29 Other chronic pain; M25.561 Pain in right knee; E11.9 Type 2 diabetes mellitus without complications; E66.01 Morbid (severe) obesity due to excess calories; J44.9 Chronic obstructive pulmonary disease, unspecified; I10 Essential (primary) hypertension; D86.9 Sarcoidosis, unspecified; F41.9 Anxiety disorder, unspecified; F31.9 Bipolar disorder, unspecified; Z79.891 Long term (current) use of opiate analgesic; Z79.4 Long term (current) use of insulin; Z79.899 Other long term (current) drug therapy; W18.30XA Fall on same level, unspecified, initial encounter
CPT/HCPCS: 70450; 72131

== ENCOUNTER 2020-02-18 15:27 | Emergency (ER) | payer OTHER ==
[2020-02-18] MEDS ORDERED: Promethazine HCl 25 MG/ML VIAL ONE (16:06)
--- NOTE | 2020-02-18 16:22 | RAD ---
XR Chest 1 View Portable History: Nausea and vomiting Comparison: Radiograph March 2019 Findings: Lungs are clear. No pneumothorax. No effusion. Cardiac silhouette and mediastinal contours are within normal limits. Recording device projects over the left upper quadrant of the abdomen. Impression: No acute intrathoracic abnormality.
[2020-02-18 16:41] LABS: #Basophils 0.2 thou/uL (0.0-0.2); #Eosinphils 0.1 thou/uL (0.0-0.7); #Lymphocytes 3.2 thou/uL (1.20-3.40); #Monocytes 0.5 thou/uL (0.11-0.59); #Neutrophils 6.5 thou/uL (1.40-6.50); %Basophils 1.7 % (0.0-1.0); %Eosinophils 1.4 % (0.0-10.0); %Lymphocytes 30.1 % (21.0-51.0); %Monocytes 5.2 % (0.0-10.0); %Neutrophils 61.7 % (42.0-75.0); Hemoglobin 11.9 g/dL (12.0-16.0); Mean Corpuscular HGB CONC 30.6 g/dL (32.0-36.0); Mean Corpuscular Hemoglobin 28.6 pg (27.0-31.0); Mean Corpuscular Volume 93.5 fL (78.0-98.0); Mean Platelet Volume 5.3 fL (7.4-10.4); Platelet Count 281 thou/uL (130-400); RBC Distribution Width 12.8 % (11.5-14.5); Red Blood Cell (RBC) Count 4.17 mill/uL (4.20-5.40); White Blood Cell (WBC) Count 10.5 thou/uL (4.8-10.8)
[2020-02-18 16:54] LABS: ALT (SGPT) 15 U/L (8-55); AST (SGOT) 14 U/L (5-34); Albumin 3.8 g/dL (3.5-5.0); Alkaline Phosphatase 116 U/L (40-110); Anion Gap 14 mmol/L (10-20); BUN (Urea Nitrogen) 20 mg/dL (9.8-20.1); Bilirubin, Total 0.2 mg/dL (0.2-1.2); Calc. Creatinine Clearance 0 mL/min (70-130); Calcium 8.7 mg/dL (7.8-10.44); Carbon Dioxide 18 mmol/L (22-29); Chloride 106 mmol/L (98-107); Estimated GFR-MDRD 49; Globulin 3.7 g/dL (2.4-3.5); Glucose 291 mg/dL (70-105); Lipase 51 U/L (8-78); Potassium 4.1 mmol/L (3.5-5.1); Protein, Total 7.5 g/dL (6.0-8.3); Sodium 134 mmol/L (136-145)
[2020-02-18 16:57] LABS: Base Excess-Venous -5.4 mmol/L (-2.0 to 3.0); Bicarbonate (HCO3v) 19.1 mmol/L (22.0-28.0); CO2 Tension (PvCO2) 33.6 mmHg (40.0-50.0); Calcium, Ionized 1.15 mmol/L (See Comments:); Chloride 107 mmol/L (98-107); Hemoglobin - Calc 12.6 g/dL (12.0-16.0); Sodium 138 mmol/L (138-145); T. Carbon Dioxide 20.2 mmol/L (22.0-28.0); vO2 Saturation-calc 85.6 % (60.0-85.0)
== END 2020-02-18 17:35 | disposition left against medical advice (07) ==
LOC: NAV ERS 15:27
DX: A41.9 Sepsis, unspecified organism (principal); F41.9 Anxiety disorder, unspecified; F32.9 Major depressive disorder, single episode, unspecified; E66.01 Morbid (severe) obesity due to excess calories; E11.9 Type 2 diabetes mellitus without complications; I10 Essential (primary) hypertension; Z79.899 Other long term (current) drug therapy; Z79.84 Long term (current) use of oral hypoglycemic drugs
CPT/HCPCS: 36416; 71045; 80053; 82010; 82330; 82803; 83605; 83690; 84484; 85025; 96372; 99284; J2550

== ENCOUNTER 2020-08-15 13:19 | Emergency (ER) | payer OTHER ==
[2020-08-15 13:55] LABS: #Basophils 0.1 thou/uL (0.0-0.2); #Eosinphils 0.2 thou/uL (0.0-0.7); #Lymphocytes 2.8 thou/uL (1.20-3.40); #Monocytes 0.5 thou/uL (0.11-0.59); #Neutrophils 6.9 thou/uL (1.40-6.50); %Eosinophils 1.9 % (0.0-10.0); %Monocytes 4.6 % (0.0-10.0); %Neutrophils 65.5 % (42.0-75.0); Hemoglobin 11.8 g/dL (12.0-16.0); Mean Corpuscular HGB CONC 31.4 g/dL (32.0-36.0); Mean Corpuscular Hemoglobin 27.4 pg (27.0-31.0); Mean Corpuscular Volume 87.1 fL (78.0-98.0); Mean Platelet Volume 5.2 fL (7.4-10.4); Platelet Count 306 thou/uL (130-400); RBC Distribution Width 13.2 % (11.5-14.5); Red Blood Cell (RBC) Count 4.32 mill/uL (4.20-5.40); White Blood Cell (WBC) Count 10.5 thou/uL (4.8-10.8)
--- NOTE | 2020-08-15 14:13 | RAD ---
CHEST 1 VIEW: Date: 08/15/2020 HISTORY: Chest pain. COMPARISON: Radiograph dated 05/15/2020. FINDINGS: There is a loop recording device projecting over the left hemithorax. Lungs are without confluent air space consolidation, pneumothorax, or effusion. No acute osseous abnormality. IMPRESSION: No acute intrathoracic abnormality. POS: [facility]
[2020-08-15 14:16] LABS: ALT (SGPT) 11 U/L (8-55); AST (SGOT) 13 U/L (5-34); Albumin 3.5 g/dL (3.5-5.0); Alkaline Phosphatase 126 U/L (40-110); Anion Gap 15 mmol/L (10-20); BUN (Urea Nitrogen) 11 mg/dL (9.8-20.1); Bilirubin, Total 0.2 mg/dL (0.2-1.2); CK (CPK) 163 U/L (29-168); Calc. Creatinine Clearance 0 mL/min (70-130); Calcium 8.9 mg/dL (7.8-10.44); Carbon Dioxide 21 mmol/L (22-29); Chloride 104 mmol/L (98-107); Glucose 277 mg/dL (70-105); Lipase 24 U/L (8-78); Protein, Total 7.5 g/dL (6.0-8.3); Sodium 136 mmol/L (136-145)
[2020-08-15] MEDS ORDERED: Sodium Chloride 0.9% 1,000 ML ONE (14:52)
== END 2020-08-15 15:10 | disposition left against medical advice (07) ==
LOC: NAV ERS 13:19
DX: R07.9 Chest pain, unspecified (principal); E11.9 Type 2 diabetes mellitus without complications; I10 Essential (primary) hypertension; Z79.899 Other long term (current) drug therapy
CPT/HCPCS: 71045; 80053; 82550; 83690; 84484; 85025; 85379; 93005; 94760; J7050

== ENCOUNTER 2020-12-25 20:17 | Emergency (ER) | payer OTHER ==
[2020-12-25 20:52] LABS: #Basophils 0.1 thou/uL (0.0-0.2); #Eosinphils 0.1 thou/uL (0.0-0.7); #Lymphocytes 3.5 thou/uL (1.20-3.40); #Monocytes 0.5 thou/uL (0.11-0.59); #Neutrophils 7.2 thou/uL (1.40-6.50); %Basophils 1.2 % (0.0-1.0); %Eosinophils 1.1 % (0.0-10.0); %Lymphocytes 30.4 % (21.0-51.0); %Monocytes 4.5 % (0.0-10.0); %Neutrophils 62.8 % (42.0-75.0); Hemoglobin 13.1 g/dL (12.0-16.0); Mean Corpuscular HGB CONC 29.3 g/dL (32.0-36.0); Mean Corpuscular Hemoglobin 26.1 pg (27.0-31.0); Mean Corpuscular Volume 89.1 fL (78.0-98.0); Mean Platelet Volume 6.2 fL (7.4-10.4); Platelet Count 309 thou/uL (130-400); RBC Distribution Width 13.5 % (11.5-14.5); White Blood Cell (WBC) Count 11.5 thou/uL (4.8-10.8)
[2020-12-25] MEDS ORDERED: Sodium Chloride 0.9% 100 ML ONE (20:53)
[2020-12-25] MEDS ORDERED: Insulin Regular 300 UNITS/3 ML VIAL ONE (20:53)
[2020-12-25] MEDS ORDERED: Sodium Chloride 0.9% 2,000 ML ONE (20:53)
[2020-12-25 20:59] LABS: Bilirubin Negative (Negative); Blood, Urine Negative (Negative); Clarity Clear (Clear); Glucose, Urine (Dipstick) >=1000 mg/dL (Negative); Ketone, Urine Negative (Negative); Leukocyte Negative (Negative); Nitrite Negative (Negative); Protein, Urine (Dipstick) Negative (Neg-Trace); Urobilinogen 0.2 mg/dL (Less than 2)
[2020-12-25 21:13] LABS: ALT (SGPT) 8 U/L (8-55); AST (SGOT) 12 U/L (5-34); Albumin 3.7 g/dL (3.5-5.0); Alkaline Phosphatase 175 U/L (40-110); Anion Gap 19 mmol/L (10-20); BUN (Urea Nitrogen) 28 mg/dL (9.8-20.1); Bilirubin, Total 0.3 mg/dL (0.2-1.2); Calc. Creatinine Clearance 0 mL/min (70-130); Calcium 8.5 mg/dL (7.8-10.44); Carbon Dioxide 23 mmol/L (22-29); Chloride 87 mmol/L (98-107); Globulin 3.8 g/dL (2.4-3.5); Protein, Total 7.5 g/dL (6.0-8.3); Sodium 125 mmol/L (136-145)
[2020-12-25 21:20] LABS: Glucose 696 mg/dL (70-105)
== END 2020-12-25 23:20 | disposition left against medical advice (07) ==
LOC: NAV ERS 20:17
DX: E11.65 Type 2 diabetes mellitus with hyperglycemia (principal); E87.1 Hypo-osmolality and hyponatremia; E86.0 Dehydration; N28.9 Disorder of kidney and ureter, unspecified; R07.9 Chest pain, unspecified; E11.9 Type 2 diabetes mellitus without complications; E66.01 Morbid (severe) obesity due to excess calories; I10 Essential (primary) hypertension; J45.909 Unspecified asthma, uncomplicated; Z79.4 Long term (current) use of insulin; Z79.51 Long term (current) use of inhaled steroids; Z79.899 Other long term (current) drug therapy
CPT/HCPCS: 36416; 80053; 81003; 82010; 84484; 85025; 93005; 96365; 96366; J1815; J7050

== ENCOUNTER 2021-08-14 12:46 | Emergency (ER) | payer OTHER ==
[2021-08-14] MEDS ORDERED: HYDROcodone/Acetaminophen 10/325 mg Tablet ONE (13:55)
== END 2021-08-14 14:47 | disposition home or self-care (01) ==
LOC: NAV ERS 12:46
DX: S30.0XXA Contusion of lower back and pelvis, initial encounter (principal); S80.01XA Contusion of right knee, initial encounter; S40.011A Contusion of right shoulder, initial encounter; S00.93XA Contusion of unspecified part of head, initial encounter; W01.0XXA Fall on same level from slipping, tripping and stumbling without subsequent striking against object, initial encounter; E11.9 Type 2 diabetes mellitus without complications; I10 Essential (primary) hypertension; J45.909 Unspecified asthma, uncomplicated; E66.09 Other obesity due to excess calories; Z79.4 Long term (current) use of insulin; Z79.84 Long term (current) use of oral hypoglycemic drugs; Z79.899 Other long term (current) drug therapy
CPT/HCPCS: 72100

== ENCOUNTER 2021-09-28 19:45 | Emergency (ER) | payer OTHER ==
[2021-09-28] MEDS ORDERED: Ondansetron ODT 4 MG TAB ONE (20:05)
[2021-09-28] MEDS ORDERED: Ondansetron PF 4 MG/2 ML Vial ONE ×2 (20:19→20:34)
[2021-09-28 20:25] LABS: #Basophils 0.1 thou/uL (0.0-0.2); #Eosinphils 0.1 thou/uL (0.0-0.7); #Lymphocytes 3.8 thou/uL (1.20-3.40); #Monocytes 0.7 thou/uL (0.11-0.59); #Neutrophils 8.8 thou/uL (1.40-6.50); %Eosinophils 0.9 % (0.0-10.0); %Lymphocytes 28.1 % (21.0-51.0); %Monocytes 5.4 % (0.0-10.0); %Neutrophils 64.7 % (42.0-75.0); Hemoglobin 14.1 g/dL (12.0-16.0); Mean Corpuscular HGB CONC 29.8 g/dL (32.0-36.0); Mean Corpuscular Hemoglobin 23.8 pg (27.0-31.0); Mean Platelet Volume 5.6 fL (7.4-10.4); Platelet Count 398 thou/uL (130-400); RBC Distribution Width 14.2 % (11.5-14.5); Red Blood Cell (RBC) Count 5.92 mill/uL (4.20-5.40); White Blood Cell (WBC) Count 13.7 thou/uL (4.8-10.8)
[2021-09-28 20:31] LABS: Base Excess-Venous 1.2 mmol/L (-2.0 to 3.0); Bicarbonate (HCO3v) 28.8 mmol/L (22.0-28.0); Calcium, Ionized 1.14 mmol/L (1.15-1.33); Chloride 102 mmol/L (98-107); Hemoglobin - Calc 17.1 g/dL (12.0-16.0); Potassium 4.8 mmol/L (3.5-5.1); Sodium 140 mmol/L (138-145); T. Carbon Dioxide 30.5 mmol/L (22.0-28.0); vO2 Saturation-calc 91.8 % (60.0-85.0)
[2021-09-28 20:38] LABS: ALT (SGPT) 17 U/L (8-55); Albumin 3.7 g/dL (3.5-5.0); Alkaline Phosphatase 151 U/L (40-110); Anion Gap 17 mmol/L (10-20); BUN (Urea Nitrogen) 14 mg/dL (9.8-20.1); Bilirubin, Total 0.2 mg/dL (0.2-1.2); Calc. Creatinine Clearance 0 mL/min (70-130); Calcium 9.2 mg/dL (7.8-10.44); Carbon Dioxide 23 mmol/L (22-29); Chloride 101 mmol/L (98-107); Globulin 4.9 g/dL (2.4-3.5); Glucose 324 mg/dL (70-105); Lipase 18 U/L (8-78); Potassium 4.6 mmol/L (3.5-5.1); Protein, Total 8.6 g/dL (6.0-8.3); Sodium 136 mmol/L (136-145)
[2021-09-28 20:39] LABS: AST (SGOT) 26 U/L (5-34); Magnesium 1.8 mg/dL (1.6-2.6)
[2021-09-28] MEDS ORDERED: Acetaminophen 650 MG Suppository ONE (20:40)
[2021-09-28] MEDS ORDERED: Acetaminophen 325 MG Suppository ONE (20:40)
[2021-09-28] MEDS ORDERED: Sodium Chloride 0.9% 100 ML ONE ×2 (20:53→21:44)
[2021-09-28] MEDS ORDERED: Cefepime 2 GM VIAL ONE ×2 (20:53→20:56)
[2021-09-28] MEDS ORDERED: Sodium Chloride 0.9% 1,000 ML ONE (21:44)
[2021-09-28] MEDS ORDERED: Promethazine HCl 25 MG/ML VIAL ONE (21:44)
[2021-09-28] MEDS ORDERED: Lisinopril 20 MG TAB ONE (22:08)
== END 2021-09-28 22:55 | disposition left against medical advice (07) ==
LOC: NAV ERS 19:45
DX: E86.0 Dehydration (principal); E11.65 Type 2 diabetes mellitus with hyperglycemia; I10 Essential (primary) hypertension; E11.9 Type 2 diabetes mellitus without complications; Z79.899 Other long term (current) drug therapy; Z79.84 Long term (current) use of oral hypoglycemic drugs
CPT/HCPCS: 36416; 71045; 80053; 82010; 82330; 82803; 83605; 83690; 83735; 84484; 85025; 87040; 94760; 96365; 96367; 96375; J0692; J2405; J2550; J3490; J7050; Q0162

== ENCOUNTER 2024-07-04 15:34 | Emergency (ER) | payer OTHER ==
[2024-07-04] MEDS ORDERED: Cephalexin 250 MG CAP ONE (16:06)
[2024-07-04] MEDS ORDERED: Bacitracin 1 PK ONE (16:06)
== END 2024-07-04 16:36 | disposition home or self-care (01) ==
LOC: NAV ERS 15:34
DX: S90.935A Unspecified superficial injury of left lesser toe(s), initial encounter (principal); I10 Essential (primary) hypertension
CPT/HCPCS: 99283

== ENCOUNTER 2025-05-31 12:47 | Emergency (ER) | payer OTHER | END 2025-05-31 14:14 | disposition home or self-care (01) | LOC: NAV ERS 12:47 | DX: S63.501A Unspecified sprain of right wrist, initial encounter (principal); I10 Essential (primary) hypertension; E11.9 Type 2 diabetes mellitus without complications; E66.9 Obesity, unspecified; E66.01 Morbid (severe) obesity due to excess calories; W06.XXXA Fall from bed, initial encounter | CPT/HCPCS: 96372; 99283; J1885 ==